=== PATIENT | female | born 1945 | race Caucasian/White ===

== ENCOUNTER 2021-02-24 21:54 | Inpatient (IN) | payer MEDICARE, BC ==
[2021-02-25] MEDS ORDERED: NALOXONE 0.4 MG/ML 1 ML VIAL IV PRN (01:07)
[2021-02-25] MEDS ORDERED: IPRATROPIUM-ALBUTEROL 3 ML NEB INHALATION PRN ×2 (01:09→12:14)
[2021-02-25] MEDS ORDERED: HEPARIN SODIUM 1,000 UN/ML (10ML VL) IV PRN (01:09)
[2021-02-25] MEDS ORDERED: IPRATROPIUM 0.5 MG/2.5 ML NEBU INHALATION STA (01:21)
[2021-02-25] MEDS ORDERED: DILTIAZEM 125 MG in SODIUM CHLORIDE 0.9% 100 ML IV SCH (01:30)
[2021-02-25 01:38] LABS: Basophils % (A) 0 %; Eosinophils % (A) 0 %; HCT 34.7 % (34.0-46.0); HGB 11.3 gm/dL (11.4-16.0); Lymphocytes # (A) 1.1 k/uL (1.0-4.8); Lymphocytes % (A) 14 %; MCH 29.5 pg (25.0-35.0); MCHC 32.5 g/dL (31.0-37.0); MCV 90.6 fL (80.0-100.0); Mean Platelet Volume 7.2; Monocytes # (A) 0.3 k/uL (0-1.0); Monocytes % (A) 4 %; Neutrophils % (A) 80 %; Platelet Count 157 k/uL (150-450); RBC 3.83 m/uL (3.80-5.40); RDW 14.4 % (11.5-15.5); WBC 7.5 k/uL (3.8-10.6)
[2021-02-25 02:00] LABS: Albumin 2.9 g/dL (3.5-5.0); Calcium 8.7 mg/dL (8.4-10.2); Magnesium 1.8 mg/dL (1.6-2.3); Potassium 3.6 mmol/L (3.5-5.1); Total Bilirubin 0.2 mg/dL (0.2-1.3); Total Protein 5.6 g/dL (6.3-8.2)
[2021-02-25 02:06] LABS: Partial Thromboplastin Time 85.9 sec (22.0-30.0); Prothrombin Time 10.4 sec (9.0-12.0)
[2021-02-25] MEDS ORDERED: ACETAMINOPHEN TAB 325 MG TAB PO PRN (02:36)
[2021-02-25] MEDS ORDERED: IPRATROPIUM 0.5 MG/2.5 ML NEBU INHALATION PRN (02:39)
[2021-02-25] MEDS ORDERED: SODIUM CHLORIDE 0.9% 1,000 ML IV SCH (02:45)
--- NOTE | 2021-02-25 02:45 | P.HPIM ---
History of Present Illness H&P Date: 02/25/21 The patient is a 75-year-old female with a PMH of type II DM, hyperlipidemia, essential tremor, and COPD who was transferred from [facility] for new onset A. fib with RVR and COPD exacerbation. History obtained from the patient along with the transferring physician. The patient reports that she had initially contracted COVID-19 roughly 4 weeks ago and was admitted to [facility] on 02/09 and was subsequently discharged to home. The patient notes that her breathing however continued to worsen and she subsequently was readmitted to [facility] on 02/22 at which time she was found to have a suspected community acquired pneumonia along with COPD exacerbation. She was started on Levaquin, DuoNeb's, and Solu-Medrol. As per the transferring physician, the patient was noted to be making gradual improvements with only mild residual shortness of breath when she was found to be in A. fib with RVR on tele-monitor. The patient was ultimately transferred to [facility] for cardiology evaluation. During the interview, the patient reported only minimal improvement in her sun rtness of breath since her readmission and noted ongoing wheezing and lethargy. She reported a chronic cough productive of white phlegm which is slightly increased from baseline. Denied fevers, chills, nausea, vomiting, diarrhea, abdominal pain, headaches, or dizziness. The radiologic and laboratory evaluation from [facility] was reviewed in detail with chest x-ray on 02/24/21 revealing patchy opacities in the mid lower lung suggesting pneumonia slightly increased compared to the previous chest x-ray. Laboratory evaluation revealed WBC count of 9.3, hemoglobin 11.7, platelets 134, sodium 135, potassium 3.9, chloride 104, CO2 22, BUN 21, creatinine 1.4, AST 10, ALT 13, troponin 0 .01. Upon admission to [facility], vital signs revealed BP 120/77, pulse 113, respiratory rate 24, SpO2 91% with 2 L nasal cannula, and temperature 99.0F. Review of Systems Pertinent positives and negatives as discussed in HPI, a complete review of systems was performed and all other systems are negative. Past Medical History Past Medical History: COPD, Diabetes Mellitus, Hypertension, Pneumonia History of Any Multi-Drug Resistant Organisms: None Reported Past Surgical History: Hysterectomy, Joint Replacement, Orthopedic Surgery Past Anesthesia/Blood Transfusion Reactions: No Reported Reaction Past Psychological History: No Psychological Hx Reported Smoking Status: Current every day smoker Past Alcohol Use History: None Reported Past Drug Use History: None Reported - Past Family History Mother Family Medical History: Cancer Medications and Allergies Allergies Allergy/AdvReac Type Severity Reaction Status Date / Time cephalexin [From Keflex] Allergy Itching Verified 02/25/21 00:53 torsemide [From Demadex] Allergy Rash/Hives Verified 02/25/21 00:53 Physical Exam Vitals: Vital Signs Temp Pulse Resp BP Pulse Ox 02/25/21 00:57 113 H 24 02/25/21 00:30 99.0 F 113 H 24 120/77 91 L Intake and Output 02/24/21 02/24/21 02/25/21 14:59 22:59 06:59 Other: Voiding Method Bedside Commode Weight 95.5 kg General: non toxic, no distress, appears at stated age, obese Derm: no unusual rashes/lesions no unusual ecchymoses, warm, dry Head: atraumatic, normocephalic, symmetric Eyes: EOMI, no lid lag, anicteric sclera, pupils equal round reactive to light ENT: Nose and ears atraumatic, no thrush, no pharyngeal erythema Neck: No thyromegaly, no cervical lymphadenopathy, trachea midline, supple Mouth: no lip lesion, mucus membranes moist Cardiovascular: S1S2 reg, no murmur, positive posterior tibial pulse bilateral, no edema, capillary refill less than 2 seconds Lungs: Bilateral wheezing and scattered rhonchi, no accessory muscle use, no conversational dyspnea Abdominal: soft, nontender to palpation, no guarding, no appreciable organomegaly, normal bowel sounds Ext: no gross muscle atrophy, muscle strength 5 out of 5 in all 4 extremities grossly, no contractures, Neuro: CN II-XI grossly intact, light touch intact all 4 extremities, finger to nose within normal limits, tremor noted worsening with intention Psych: Alert, oriented, appropriate affect Results CBC & Chem 7: 02/25/21 01:24 02/25/21 01:28 Labs: Abnormal Lab Results - Last 24 Hours (Table) 02/25/21 02/25/21 Range/Units 01:24 01:28 Hgb 11.3 L (11.4-16.0) gm/dL Sodium 135 L (137-145) mmol/L BUN 22 H (7-17) mg/dL Creatinine 1.69 H (0.52-1.04) mg/dL Glucose 68 L (74-99) mg/dL Total Protein 5.6 L (6.3-8.2) g/dL Albumin 2.9 L (3.5-5.0) g/dL Thrombosis Risk Factor Assmnt - Choose All That Apply Any of the Below Risk Factors Present?: Yes Each Factor Represents 1 point: Abnormal pulmonary function (COPD), Serious lung disease incl. pneumonia (< 1month) Each Risk Factor Represents 3 Points: Age 75 years or older Thrombosis Risk Factor Assessment Total Risk Factor Score: 5 Thrombosis Risk Factor Assessment Level: High Risk Assessment and Plan Plan: Acute hypoxic respiratory failure, likely multifactorial due to acute COPD and community acquired pneumonia and recent COVID-19 -Continue with Atrovent (patient reports significant tachycardia with worsening tremors with albuterol) -C/w Solumedrol -Pulmonary consulted -Continue with Levaquin 750 mg q48h (Cr-clearance 42) New onset A. fib with RVR -Patient denied any prior history of A. fib -Continue with heparin and Cardizem infusions -Cardiac monitoring -Echocardiogram -Cardiac consult -Check TSH Kidney failure, acute versus chronic -Gentle hydration Chronic conditions: Type II DM, hyperlipidemia, essential tremor -Check A1c -Lispro insulin sliding scale with blood glucose monitoring -Hold oral hypoglycemics DVT prophylaxis -Heparin infusion The patient is admitted with an anticipated greater than 2 midnight stay for evaluation of respiratory failure CODE STATUS: No Code Discussed with: Patient Anticipated discharge date: 2-[address]: Home A total of 40 minutes was spent on the care of this complex patient more than 50% of the time was spent in counseling and care coordination.
[2021-02-25] MEDS ORDERED: LEVOFLOXACIN 750 MG TAB PO ONE (03:00)
[2021-02-25] MEDS: HEPARIN SOD,PORK IN 0.45% NACL 25,000 UNIT in 0.45% NACL 1 250ML.BAG IV SCH (03:17)
[2021-02-25] MEDS: SODIUM CHLORIDE 0.9% 1,000 ML IV SCH ×2 (03:21→18:03)
[2021-02-25] MEDS: INSULIN ASPART (NovoLOG) 100 UNIT/ML VIAL SQ SCH ×5 (06:31→21:00)
[2021-02-25 06:35] LABS: Glucose,Whole Blood 69 mg/dL (75-99)
[2021-02-25 07:03] LABS: Glucose,Whole Blood 107 mg/dL (75-99)
[2021-02-25] MEDS: IPRATROPIUM 0.5 MG/2.5 ML NEBU INHALATION SCH ×4 (07:55→20:08)
[2021-02-25] MEDS ORDERED: IPRATROPIUM-ALBUTEROL 3 ML NEB INHALATION SCH (08:00)
[2021-02-25] MEDS ORDERED: methylPREDNISolone SOD SUCCI 125 MG/2 ML VIAL IV SCH (08:00)
[2021-02-25] MEDS: ZINC SULFATE 220 MG CAP PO SCH (09:00)
[2021-02-25] MEDS: ASCORBIC ACID 500 MG TAB PO SCH (09:00)
[2021-02-25] MEDS: CHOLECALCIFEROL 25 MCG (1000 IU) TABLET PO SCH (09:00)
--- NOTE | 2021-02-25 10:02 | XR ---
EXAMINATION TYPE: XR chest 2V DATE OF EXAM: 02/25/2021 COMPARISON: NONE TECHNIQUE: PA and lateral views submitted. HISTORY: Cough FINDINGS: There is a coarsened interstitium. No pneumothorax or pleural effusion. Left basilar subsegmental con solidation. Atherosclerotic change aorta. IMPRESSION: 1. Left basilar atelectasis favored over infiltrate. Prominence of the interstitium could be associat ed with interstitial pneumonitis or bronchitis correlate clinically.
[2021-02-25 12:02] LABS: Glucose,Whole Blood 88 mg/dL (75-99)
--- NOTE | 2021-02-25 14:11 | P.PN ---
Subjective Progress Note Date: 02/25/21 (delayed charting seen at 0830) Principal diagnosis: shortness of breath Patient is a 75-year-old female with diabetes mellitus type 2, hypertension, essential tremor, and COPD he was a transfer from [facility] secondary to new onset A. fib with RVR are during a COPD exacerbation. She was initially hospitalized at [facility] on 02/22 secondary to acute exacerbation of COPD and possible community-acquired pneumonia. She was treated with Levaquin, DuoNeb's, and steroids. She then developed A. fib with RVR which is new onset. She was started on a Cardizem drip and subsequently transferred to our facility. Of note the patient did have COVID-19 approximately 4 weeks ago but has since recovering and then again had worsening. Patient converted to sinus rhythm overnight. Patient seen and examined at bedside. She states she is feeling much better than yesterday. She continues to have shortness of breath and wheezing. She states her shortness of breath has gotten worse over the last 1 week. She has been wheezing consistently since her [place] diagnosis. She denies any prior history of A. fib. She does not use any oxygen at home normally. Falls often and last year had a fall that resulted in cervical fx requiring surgery General: ill appearing, no distress, appears at stated age Derm: warm, dry Head: atraumatic, normocephalic, symmetric Eyes: EOMI, no lid lag, anicteric sclera Mouth: no lip lesion, mucus membranes moist Cardiovascular: S1S2 reg, no murmur, positive posterior tibial pulse bilateral, Lungs: diffuse wheezing bilateral , no accessory muscle use Abdominal: soft, nontender to palpation, no guarding, no appreciable organomeg nic Ext: no gross muscle atrophy, no edema, no contractures Neuro: CN II-XI grossly intact, no focal neuro deficits Psych: Alert, oriented, appropriate affect Acute exacerbation of COPD, [place] acquired pneumonia, recent COVID-19, acute hypoxic respiratory failure - CXR - Levaquin due to allergies - pulm consult - steroids, duoneb, pulm hygeine New-onset A. fib with RVR, currently in normal sinus rhythm -Transitioned off of Cardizem drip to oral Cardizem -tele - echo - TSH normal - Mg 1.8 - cardio recs - poor candidate for anticoagulation due to slef reporting of multiple falls including one resulting in cervical spine fracture. DM 2 with hypoglycemia - follow BS - SSI - Hold Glipizide and pioglitozone - hypoglycemia may be due to this agents in conjunction with MACKENZIE - Resume Januvia--> [place] MACKENZIE vs CKD - unknown baseline Cr - follow Cr - Avoid nephrotoxic agents - fIV fluids Hypertension, controlled -Resume home atenolol -Old home Procardia she has not been started on Cardizem -Follow blood pressures Tobacco abuse -Cessation Obesity with BMI 34 -Structured outpatient weight loss DVT prophylaxis: Heparin gtt Discussed with: patient, nursing Anticipated discharge: 3-[address]: home A total of 35 minutes was spent on the care of this complex patient more than 50% of the time was spent in counseling and care coordination. Objective - Vital Signs Vital signs: Vital Signs Temp 96.7 F L 02/25/21 12:00 Pulse 69 02/25/21 12:00 Resp 20 02/25/21 12:00 BP 158/70 02/25/21 12:00 Pulse Ox 93 L 02/25/21 12:00 Intake & Output 02/24/21 02/25/21 02/25/21 18:59 06:59 18:59 Intake Total 0.167 120 Balance 0.167 120 Weight 95.5 kg Intake: Intake, IV Titration 0.167 Amount Heparin Sod,Pork in 0.45% 0.167 NaCl 25,000 unit In 0.45 % NaCl 1 250ml.bag @ 10. 471 UNITS/KG/HR 10 mls/hr IV .Q24H [facility] Rx#: [id number] Oral 120 Other: Voiding Method Bedside Commode Toilet - Labs CBC & Chem 7: 02/25/21 01:24 02/25/21 01:28 Labs: Abnormal Lab Results - Last 24 Hours (Table) 02/25/21 02/25/21 02/25/21 Range/Units 01:24 01:24 01:28 Hgb 11.3 L (11.4-16.0) gm/dL APTT 85.9 H (22.0-30.0) sec Sodium 135 L (137-145) mmol/L BUN 22 H (7-17) mg/dL Creatinine 1.69 H (0.52-1.04) mg/dL Glucose 68 L (74-99) mg/dL POC Glucose (mg/dL) (75-99) mg/dL Total Protein 5.6 L (6.3-8.2) g/dL Albumin 2.9 L (3.5-5.0) g/dL 02/25/21 02/25/21 02/25/21 Range/Units 06:24 06:52 07:29 Hgb (11.4-16.0) gm/dL APTT 60.0 H (22.0-30.0) sec Sodium (137-145) mmol/L BUN (7-17) mg/dL Creatinine (0.52-1.04) mg/dL Glucose (74-99) mg/dL POC Glucose (mg/dL) 69 L 107 H (75-99) mg/dL Total Protein (6.3-8.2) g/dL Albumin (3.5-5.0) g/dL
--- NOTE | 2021-02-25 16:05 | P.CNPUL ---
History of Present Illness Consult date: 02/25/21 Requesting physician: Jody Parisi Reason for consult: other Chief complaint: Atrial fibrillation. History of present illness: Pulmonary consult dated 02/25/2021. 75-year-old female, with a history of diabetes, hyperlipidemia, essential tremor, and COPD. She apparently was transferred down from [facility], with new onset atrial fibrillation and RVR. She apparently had COVID 19 infection roughly 4 weeks ago, and was admitted to [facility] on February 09, and discharged home. Apparently since that time, her breathing has worsened. She was readmitted to [facility] on February 22, at which time she was suspected to have community-acquired pneumonia along with COPD exacerbation. She was started on Levaquin, DuoNeb, and Solu-Medrol. Apparently, the patient was making improvement at which time, she was noted to have atrial fibrillation with RVR. She was transferred down primarily for cardiology evaluation. She's currently resting comfortably. She's currently on 4 L nasal oxygen. She's getting saline at 75 mL an hour, which returned on the KVO, and IV heparin. She is not admitting to any shortness of breath at this time. She mostly focuses on her irregular heartbeat. Laboratory data includes a white count 7.5, hemoglobin 11.3, hematocrit 34.7, and platelet count 157,000. PTT is 60. Sodium 135, potassium 3.6, chlorides 104, CO2 25, anion gap 6, BUN and creatinine were 22 and 1.69. There is some basilar atelectasis. No definitive infiltrate. The interstitium to me as a bit prominent which might be consistent with some mild interstitial edema/CHF. Review of Systems REVIEW OF SYSTEMS: CONSTITUTIONAL: [Negative.] NEUROLOGIC: [ Negative.] HEENT: [ Negative.] CARDIAC: Irregular rapid heartbeat. PULMONARY: Shortness of breath. GI: [Negative.] : [Negative.] RHEUMATOLOGIC: [ Negative.] IMMUNOLOGIC: [ Negative.] ENDOCRINE: [Negative. ] DERMATOLOGIC: [Negative.] Past Medical History Past Medical History: COPD, Diabetes Mellitus, Hypertension, Pneumonia History of Any Multi-Drug Resistant Organisms: None Reported Past Surgical History: Hysterectomy, Joint Replacement, Orthopedic Surgery Past Anesthesia/Blood Transfusion Reactions: No Reported Reaction Past Psychological History: No Psychological Hx Reported Smoking Status: Current every day smoker Past Alcohol Use History: None Reported Past Drug Use History: None Reported - Past Family History Mother Family Medical History: Cancer Medications and Allergies Home Medications Medication Instructions Recorded Confirmed Type Budesonide 1 mg INHALATION RT-BID 02/25/21 02/25/21 History Budesonide/Formoterol Fumarate 2 puff INHALATION RT-BID 02/25/21 02/25/21 History [Symbicort 160-4.5 Mcg Inhaler] Cholecalciferol (Vitamin D3) 125 mcg PO DAILY 02/25/21 02/25/21 History [Vitamin D3 (5000 Iu)] Cyanocobalamin (Vitamin B-12) 1,000 mcg PO DAILY 02/25/21 02/25/21 History [Vitamin B-12] Levalbuterol Nebulized [Xopenex 1.25 mg INHALATION RT-Q4H PRN 02/25/21 02/25/21 History Nebulized] Lovastatin [Mevacor] 20 mg PO HS 02/25/21 02/25/21 History NIFEdipine XL [Procardia Xl] 30 mg PO DAILY 02/25/21 02/25/21 History NIFEdipine [Procardia XL] 90 mg PO DAILY 02/25/21 02/25/21 History PARoxetine HCL [Paxil] 30 mg PO DAILY 02/25/21 02/25/21 History Pioglitazone [Actos] 15 mg PO DAILY 02/25/21 02/25/21 History Zafirlukast [Accolate] 20 mg PO BID 02/25/21 02/25/21 History atenoloL [Atenolol] 25 mg PO BID 02/25/21 02/25/21 History glipiZIDE [Glucotrol] 10 mg PO BID 02/25/21 02/25/21 History hydroCHLOROthiazide 12.5 mg PO DAILY 02/25/21 02/25/21 History predniSONE See Taper PO DAILY 02/25/21 02/25/21 History sitaGLIPtin [Januvia] 50 mg PO DAILY 02/25/21 02/25/21 History Allergies Allergy/AdvReac Type Severity Reaction Status Date / Time cephalexin [From Keflex] Allergy Itching Verified 02/25/21 09:37 moxifloxacin [From Avelox] Allergy Unknown Verified 02/25/21 09:37 torsemide [From Demadex] Allergy Rash/Hives Verified 02/25/21 09:37 Physical Exam Osteopathic Statement: *. No significant issues noted on an osteopathic structural exam other than those noted in the History and Physical/Consult. Vitals: Vital Signs Temp Pulse Pulse Pulse Resp BP BP 02/25/21 12:00 96.7 F L 69 20 158/70 02/25/21 11:53 68 02/25/21 11:41 68 02/25/21 09:11 98.2 F 60 63 20 127/59 02/25/21 08:07 64 02/25/21 07:55 64 02/25/21 03:35 60 02/25/21 03:30 98.7 F 58 L 26 H 147/71 02/25/21 03:24 68 02/25/21 00:57 113 H 24 02/25/21 00:30 99.0 F 113 H 24 120/77 Pulse Ox 02/25/21 12:00 93 L 02/25/21 11:53 02/25/21 11:41 02/25/21 09:11 92 L 02/25/21 08:07 02/25/21 07:55 02/25/21 03:35 02/25/21 03:30 96 02/25/21 03:24 02/25/21 00:57 02/25/21 00:30 91 L Intake and Output 02/25/21 02/25/21 02/25/21 06:59 14:59 22:59 Intake Total 0.167 120 Balance 0.167 120 Intake: Intake, IV Titration 0.167 Amount Heparin Sod,Pork in 0.45% 0.167 NaCl 25,000 unit In 0.45 % NaCl 1 250ml.bag @ 10. 471 UNITS/KG/HR 10 mls/hr IV .Q24H [facility] Rx#: [id number] Oral 120 Other: Voiding Method Bedside Commode Toilet Weight 95.5 kg No acute distress, oriented 3. Currently on 4 L. No conversational dyspnea or use of accessory muscles. HEENT examination is grossly unremarkable. Neck supple. Full range of motion. No adenopathy thyromegaly or neck vein distention. Cardiovascular examination reveals an irregular rhythm and rate. S1-S2 normal. No S3 or S4. No discernible murmur noted. Lungs reveal mild scattered rhonchi and basilar crackles. No wheezes. Breath sounds equal bilaterally. Abdomen soft bowel sounds are heard. No masses or tenderness. Extremities are intact. Trace edema. No cyanosis or clubbing. Skin is without rash or lesion. Neurologic examination is brief but nonfocal. Results - Laboratory Findings CBC and BMP: 02/25/21 01:24 02/25/21 01:28 PT/INR, D-dimer PT 10.4 sec (9.0-12.0) 02/25/21 01:24 INR 1.0 (<1.2) 02/25/21 01:24 Abnormal lab findings: Abnormal Labs 02/25/21 02/25/21 02/25/21 01:24 01:24 01:28 Hgb 11.3 L APTT 85.9 H Sodium 135 L BUN 22 H Creatinine 1.69 H Glucose 68 L POC Glucose (mg/dL) Hemoglobin A1c Total Protein 5.6 L Albumin 2.9 L 02/25/21 02/25/21 02/25/21 06:24 06:52 07:29 Hgb APTT 60.0 H Sodium BUN Creatinine Glucose POC Glucose (mg/dL) 69 L 107 H Hemoglobin A1c Total Protein Albumin 02/25/21 07:29 Hgb APTT Sodium BUN Creatinine Glucose POC Glucose (mg/dL) Hemoglobin A1c 9.0 H Total Protein Albumin - Diagnostic Findings Chest x-ray: image reviewed Assessment and Plan Assessment: Shortness of breath, likely multifactorial, in part related to atrial fibrillation/RVR, possible COPD exacerbation, and possible underlying mild fluid overload/CHF. History of underlying COPD. History of diabetes mellitus. History of hypertension. Prior history of COVID 19 infection, roughly 1 month ago. History of ongoing tobacco use. History of benign essential tremor. Plan: Plan dated 02/25/2021. The patient's IV fluids are turned down to 10 mL an hour. Patient's medications and x-rays are reviewed. A pro-calcitonin level as well as a N-terminal proBNP are added. Medications are reviewed. We will continue to follow make recommendations were appropriate. Overall prognosis is guarded. The patient continues on IV heparin. Cardiology was asked to see this patient. Time with Patient: Greater than 30
[2021-02-25 17:07] LABS: Glucose,Whole Blood 334 mg/dL (75-99)
--- NOTE | 2021-02-25 17:49 | P.CRDCN ---
History of Present Illness Consult date: 02/25/21 History of present illness: This is a 75-year-old female with history of diabetes, hypertension and COPD who apparently was diagnosed for 4 weeks ago with coronavirus infection. Patient was treated and was sent home but readmitted to the [facility] on February 22 with suspected community acquired pneumonia and COPD exacerbation. Patient was being treated with antibiotics and steroids. Patient apparently developed atrial fibrillation with RVR. She was transferred to this hospital for further evaluation and treatment. She was started on IV Cardizem drip. Patient converted to sinus rhythm. She is feeling better. Her white count was 7.5. Hemoglobin was 11.3. Her creatinine is 1.69. Chest x-ray showed some left-sided infiltrate versus atelectasis and interstitial prominence size to possible bronchitis. The possibility of CHF to be considered. Her proBNP is elevated. Patient is currently on small dose of hydrochlorothiazide. May switch to Lasix. We'll get an echocardiogram to assess LV function. Further recommendations depend upon clinical course. Review of Systems As per the chart Past Medical History Past Medical History: COPD, Diabetes Mellitus, Hypertension, Pneumonia History of Any Multi-Drug Resistant Organisms: None Reported Past Surgical History: Hysterectomy, Joint Replacement, Orthopedic Surgery Past Anesthesia/Blood Transfusion Reactions: No Reported Reaction Past Psychological History: No Psychological Hx Reported Smoking Status: Current every day smoker Past Alcohol Use History: None Reported Past Drug Use History: None Reported - Past Family History Mother Family Medical History: Cancer Medications and Allergies Home Medications Medication Instructions Recorded Confirmed Type Budesonide 1 mg INHALATION RT-BID 02/25/21 02/25/21 History Budesonide/Formoterol Fumarate 2 puff INHALATION RT-BID 02/25/21 02/25/21 History [Symbicort 160-4.5 Mcg Inhaler] Cholecalciferol (Vitamin D3) 125 mcg PO DAILY 02/25/21 02/25/21 History [Vitamin D3 (5000 Iu)] Cyanocobalamin (Vitamin B-12) 1,000 mcg PO DAILY 02/25/21 02/25/21 History [Vitamin B-12] Levalbuterol Nebulized [Xopenex 1.25 mg INHALATION RT-Q4H PRN 02/25/21 02/25/21 History Nebulized] Lovastatin [Mevacor] 20 mg PO HS 02/25/21 02/25/21 History NIFEdipine XL [Procardia Xl] 30 mg PO DAILY 02/25/21 02/25/21 History NIFEdipine [Procardia XL] 90 mg PO DAILY 02/25/21 02/25/21 History PARoxetine HCL [Paxil] 30 mg PO DAILY 02/25/21 02/25/21 History Pioglitazone [Actos] 15 mg PO DAILY 02/25/21 02/25/21 History Zafirlukast [Accolate] 20 mg PO BID 02/25/21 02/25/21 History atenoloL [Atenolol] 25 mg PO BID 02/25/21 02/25/21 History glipiZIDE [Glucotrol] 10 mg PO BID 02/25/21 02/25/21 History hydroCHLOROthiazide 12.5 mg PO DAILY 02/25/21 02/25/21 History predniSONE See Taper PO DAILY 02/25/21 02/25/21 History sitaGLIPtin [Januvia] 50 mg PO DAILY 02/25/21 02/25/21 History Allergies Allergy/AdvReac Type Severity Reaction Status Date / Time cephalexin [From Keflex] Allergy Itching Verified 02/25/21 09:37 moxifloxacin [From Avelox] Allergy Unknown Verified 02/25/21 09:37 torsemide [From Demadex] Allergy Rash/Hives Verified 02/25/21 09:37 Physical Exam Vitals: Vital Signs Temp Pulse Pulse Pulse Resp BP BP 02/25/21 16:17 68 02/25/21 16:04 68 02/25/21 12:00 96.7 F L 69 20 158/70 02/25/21 11:53 68 02/25/21 11:41 68 02/25/21 09:11 98.2 F 60 63 20 127/59 02/25/21 08:07 64 02/25/21 07:55 64 02/25/21 03:35 60 02/25/21 03:30 98.7 F 58 L 26 H 147/71 02/25/21 03:24 68 02/25/21 00:57 113 H 24 02/25/21 00:30 99.0 F 113 H 24 120/77 Pulse Ox 02/25/21 16:17 02/25/21 16:04 02/25/21 12:00 93 L 02/25/21 11:53 02/25/21 11:41 02/25/21 09:11 92 L 02/25/21 08:07 02/25/21 07:55 02/25/21 03:35 02/25/21 03:30 96 02/25/21 03:24 02/25/21 00:57 02/25/21 00:30 91 L Intake and Output 02/25/21 02/25/21 02/25/21 06:59 14:59 22:59 Intake Total 0.167 120 Balance 0.167 120 Intake: Intake, IV Titration 0.167 Amount Heparin Sod,Pork in 0.45% 0.167 NaCl 25,000 unit In 0.45 % NaCl 1 250ml.bag @ 10. 471 UNITS/KG/HR 10 mls/hr IV .Q24H [facility] Rx#: [id number] Oral 120 Other: Voiding Method Bedside Commode Toilet # Voids 2 Weight 95.5 kg GENERAL EXAM: Patient is alert and oriented and doesn't appear to be in any acute distress HEENT: Normocephalic. Normal reaction of pupils, equal size, normal range of extraocular motion. No erythema or exudates in the throat. NECK: No masses, no nuchal rigidity. CHEST: No chest wall deformity. LUNGS: Scattered rhonchi and rales at the bases HEART: S1 and S2 normal . Regular heart sounds ABDOMEN: No hepatosplenomegaly, normal bowel sounds, no guarding or rigidity. SKIN: No rashes CENTRAL NERVOUS SYSTEM: No focal deficits. EXTREMITIES: No cyanosis, clubbing or edema. Results 02/25/21 01:24 02/25/21 01:28 Cardiac Enzymes 02/25/21 Range/Units 01:28 AST 18 (14-36) U/L Coagulation 02/25/21 02/25/21 Range/Units 01:24 07:29 PT 10.4 (9.0-12.0) sec APTT 85.9 H 60.0 H (22.0-30.0) sec CBC 02/25/21 Range/Units 01:24 WBC 7.5 (3.8-10.6) k/uL RBC 3.83 (3.80-5.40) m/uL Hgb 11.3 L (11.4-16.0) gm/dL Hct 34.7 (34.0-46.0) % Plt Count 157 (150-450) k/uL Comprehensive Metabolic Panel 02/25/21 Range/Units 01:28 Sodium 135 L (137-145) mmol/L Potassium 3.6 (3.5-5.1) mmol/L Chloride 104 (98-107) mmol/L Carbon Dioxide 25 (22-30) mmol/L BUN 22 H (7-17) mg/dL Creatinine 1.69 H (0.52-1.04) mg/dL Glucose 68 L (74-99) mg/dL Calcium 8.7 (8.4-10.2) mg/dL AST 18 (14-36) U/L ALT 14 (4-34) U/L Alkaline Phosphatase 41 (38-126) U/L Total Protein 5.6 L (6.3-8.2) g/dL Albumin 2.9 L (3.5-5.0) g/dL Current Medications Generic Name Dose Route Start Last Admin Trade Name Freq PRN Reason Stop Dose Admin Acetaminophen 650 mg 02/25/21 02:36 Acetaminophen Tab 325 Mg Tab PO Q6HR PRN Fever and/ or Pain Albuterol/Ipratropium 3 ml 02/25/21 12:14 Ipratropium-Albuterol 3 Ml Neb INHALATION RT-Q4H PRN Shortness Of Breath Ascorbic Acid 1,000 mg 02/25/21 09:00 02/25/21 09:00 Ascorbic Acid 500 Mg Tab PO 1,000 mg DAILY [facility] Administration Atenolol 25 mg 02/25/21 21:00 Atenolol 25 Mg Tab PO BID [facility] Atorvastatin Calcium 10 mg 02/25/21 21:00 Atorvastatin 10 Mg Tab PO HS [facility] Budesonide/Formoterol Fumarate 2 puff 02/25/21 20:00 Symbicort 160-4.5 Mcg Inhaler INHALATION RT-BID [facility] Cholecalciferol 125 mcg 02/25/21 09:00 02/25/21 09:00 Cholecalciferol 25 Mcg (1000 Iu) Tablet PO 125 mcg DAILY [facility] Administration Cyanocobalamin 1,000 mcg 02/26/21 09:00 Cyanocobalamin 500 Mcg Tab PO DAILY [facility] Diltiazem HCl 60 mg 02/25/21 16:00 Diltiazem Oral 60 Mg Tab PO TID [facility] Heparin Sodium (Porcine) 0 unit 02/25/21 01:09 Heparin Sodium 1,000 Un/Ml (10ml Vl) IV PER PROTOCOL PRN Low PTT Protocol Hydrochlorothiazide 12.5 mg 02/26/21 09:00 Hydrochlorothiazide 12.5 Mg Cap PO DAILY [facility] Heparin Sodium/Sodium Chloride 250 mls @ 10 mls/hr 02/25/21 01:30 02/25/21 03:18 25,000 unit/ Sodium Chloride IV 8.47 units/kg/hr .Q24H [facility] 8.089 mls/hr Titration Protocol 10.471 UNITS/KG/HR Sodium Chloride 1,000 mls @ 20 mls/hr 02/25/21 02:45 02/25/21 03:21 Saline 0.9% IV 75 mls/hr .Q24H [facility] Administration Insulin Aspart 0 unit 02/25/21 07:30 02/25/21 12:49 Insulin Aspart (Novolog) 100 Unit/Ml Vial SQ Not Given ACHS [facility] Protocol Ipratropium [place] 0.5 mg 02/25/21 08:00 02/25/21 16:04 Ipratropium 0.5 Mg/2.5 Ml Nebu INHALATION 0.5 mg RT-QID [facility] Administration Linagliptin 5 mg 02/26/21 09:00 Linagliptin 5 Mg Tablet PO DAILY [facility] Naloxone HCl 0.2 mg 02/25/21 01:07 Naloxone 0.4 Mg/Ml 1 Ml Vial IV Q2M PRN Opioid Reversal Paroxetine HCl 30 mg 02/26/21 09:00 Paroxetine 10 Mg Tab PO DAILY [facility] Zinc Sulfate 220 mg 02/25/21 09:00 02/25/21 09:00 Zinc Sulfate 220 Mg Cap PO 220 mg DAILY [facility] Administration Intake and Output 02/25/21 02/25/21 02/25/21 06:59 14:59 22:59 Intake Total 0.167 120 Balance 0.167 120 Intake: Intake, IV Titration 0.167 Amount Heparin Sod,Pork in 0.45% 0.167 NaCl 25,000 unit In 0.45 % NaCl 1 250ml.bag @ 10. 471 UNITS/KG/HR 10 mls/hr IV .Q24H [facility] Rx#: [id number] Oral 120 Other: Voiding Method Bedside Commode Toilet # Voids 2 Weight 95.5 kg 02/25/21 01:24 02/25/21 01:28 EKG Interpretations (text) Initially patient was in atrial fibrillation. She converted to sinus rhythm Assessment and Plan (1) Atrial fibrillation with RVR Current Visit: Yes Status: Acute Code(s): I48.91 - UNSPECIFIED ATRIAL FIBRILLATION SNOMED Code(s): 466706967619050 (2) Community acquired pneumonia Current Visit: Yes Status: Acute Code(s): J18.9 - PNEUMONIA, UNSPECIFIED ORGANISM SNOMED Code(s): 381851837 (3) COVID-19 Current Visit: Yes Status: Acute Code(s): U07.1 - COVID-19 SNOMED Code(s): 851844222 (4) COPD (chronic obstructive pulmonary disease) Current Visit: Yes Status: Acute Code(s): J44.9 - CHRONIC OBSTRUCTIVE PULMONARY DISEASE, UNSPECIFIED SNOMED Code(s): 64493186 Plan: Patient is back in sinus rhythm. We'll continue beta robert. Get echocardiogram to assess LV function. There could be competent of diastolic CHF. Short course of diuretics to be constricted. Further recommendations depend upon clinical course. We'll continue treatment for COPD and pneumonia
[2021-02-25] MEDS ORDERED: INSULIN ASPART (NovoLOG) 100 UNIT/ML VIAL SQ ONE (17:57)
[2021-02-25] MEDS: DILTIAZEM ORAL 60 MG TAB PO SCH ×2 (18:03→22:56)
[2021-02-25] MEDS ORDERED: BUDESONIDE 1 MG/2 ML NEBU INHALATION SCH (20:00)
[2021-02-25] MEDS: SYMBICORT 160-4.5 MCG INHALER INHALATION SCH (20:08)
[2021-02-25 20:20] LABS: Glucose,Whole Blood 379 mg/dL (75-99)
[2021-02-25] MEDS: atenoloL 25 MG TAB PO SCH (20:24)
[2021-02-25] MEDS: ATORVASTATIN 10 MG TAB PO SCH (20:24)
[2021-02-25] MEDS ORDERED: LEVOFLOXACIN 750 MG TAB PO SCH (21:00)
[2021-02-26] MEDS: HEPARIN SOD,PORK IN 0.45% NACL 25,000 UNIT in 0.45% NACL 1 250ML.BAG IV SCH (05:03)
[2021-02-26 05:59] LABS: Glucose,Whole Blood 291 mg/dL (75-99)
[2021-02-26] MEDS: INSULIN ASPART (NovoLOG) 100 UNIT/ML VIAL SQ SCH ×4 (06:39→20:43)
[2021-02-26] MEDS: IPRATROPIUM 0.5 MG/2.5 ML NEBU INHALATION SCH ×4 (08:06→20:22)
[2021-02-26] MEDS: SYMBICORT 160-4.5 MCG INHALER INHALATION SCH ×2 (08:06→20:22)
[2021-02-26 08:11] LABS: Basophils % (A) 0 %; Eosinophils % (A) 0 %; HCT 31.3 % (34.0-46.0); HGB 10.6 gm/dL (11.4-16.0); Lymphocytes # (A) 0.5 k/uL (1.0-4.8); Lymphocytes % (A) 10 %; MCH 30.8 pg (25.0-35.0); MCV 90.6 fL (80.0-100.0); Mean Platelet Volume 7.3; Monocytes # (A) 0.2 k/uL (0-1.0); Monocytes % (A) 4 %; Neutrophils # (A) 4.1 k/uL (1.3-7.7); Neutrophils % (A) 84 %; Platelet Count 138 k/uL (150-450); RBC 3.45 m/uL (3.80-5.40); RDW 13.7 % (11.5-15.5); WBC 4.8 k/uL (3.8-10.6)
[2021-02-26 08:18] LABS: INR 0.9 (<1.2); Prothrombin Time 9.7 sec (9.0-12.0)
[2021-02-26] MEDS: CYANOCOBALAMIN 500 MCG TAB PO SCH (08:39)
[2021-02-26] MEDS: CHOLECALCIFEROL 25 MCG (1000 IU) TABLET PO SCH (08:39)
[2021-02-26] MEDS: ZINC SULFATE 220 MG CAP PO SCH (08:40)
[2021-02-26] MEDS: LINAGLIPTIN 5 MG TABLET PO SCH (08:40)
[2021-02-26] MEDS: DILTIAZEM ORAL 60 MG TAB PO SCH ×3 (08:40→20:42)
[2021-02-26] MEDS: atenoloL 25 MG TAB PO SCH ×2 (08:40→20:42)
[2021-02-26] MEDS: hydroCHLOROthiazide 12.5 MG CAP PO SCH (08:40)
[2021-02-26] MEDS: PARoxetine 10 MG TAB PO SCH (08:40)
[2021-02-26] MEDS: ASCORBIC ACID 500 MG TAB PO SCH (08:40)
[2021-02-26 08:52] LABS: Potassium 3.8 mmol/L (3.5-5.1)
[2021-02-26] MEDS ORDERED: CHOLECALCIFEROL 25 MCG (1000 IU) TABLET PO SCH (09:00)
[2021-02-26] MEDS ORDERED: NIFEdipine XL 90 MG TAB.ER.24 PO SCH (09:00)
[2021-02-26 10:39] VITALS: BMI 33.7
[2021-02-26] MEDS: APIXABAN 5 MG TAB PO SCH ×2 (11:05→20:42)
--- NOTE | 2021-02-26 11:08 | ECHOF ---
Referral Reason:Afib MEASUREMENTS -------- HEIGHT: 167.6 cm WEIGHT: 94.3 kg BP: 116/56 RVIDd: 3.4 cm (< 3.3) IVSd: 1.5 cm (0.6 - 1.1) LVIDd: 4.5 cm (3.9 - 5.3) LVPWd: 1.4 cm (0.6 - 1.1) IVSs: 2.0 cm LVIDs: 3.1 cm LVPWs: 1.9 cm LAESV Index (A-L): 32.26 ml/m Ao Diam: 3.3 cm (2.0 - 3.7) AV Cusp: 1.8 cm (1.5 - 2.6) MV EXCURSION: 15.243 mm (> 18.000) MV EF SLOPE: 76 mm/s (70 - 150) EPSS: 0.3 cm MV E Wally: 1.07 m/s MV DecT: 212 ms MV A Wally: 0.89 m/s MV E/A Ratio: 1.20 RAP: 5.00 mmHg RVSP: 17.16 mmHg FINDINGS -------- Sinus rhythm. This was a technically adequate study. The left ventricular size is normal. There is moderate concentric left ventricular hypertrophy. O verall left ventricular systolic function is normal with, an EF between 55 - 60 %. The diastolic fi lling pattern is normal for the age of the patient 14.50. The right ventricle is mildly enlarged. LA is midly dilated 29-33ml/m2. The right atrial size is normal. Interatrial and interventricular septum intact. The aortic valve is trileaflet and appears structurally normal. There is no evidence of aortic regu rgitation. There is no evidence of aortic stenosis. Mild mitral regurgitation is present. Mild tricuspid regurgitation present. There is no evidence of pulmonary hypertension. The right v entricular systolic pressure, as measured by Doppler, is 17.16mmHg. There is no pulmonic regurgitation present. The aortic root size is normal. IVC Not well visulized. There is no pericardial effusion. CONCLUSIONS -------- 1. The left ventricular size is normal. 2. There is moderate concentric left ventricular hypertrophy. 3. Overall left ventricular systolic function is normal with, an EF between 55 - 60 %. 4. The diastolic filling pattern is normal for the age of the patient 14.50 5. The right ventricle is mildly enlarged. 6. LA is midly dilated 29-33ml/m2. 7. Mild mitral regurgitation is present. 8. Mild tricuspid regurgitation present. [employer]ARK [employer]IST: Bella Ny RDCS
[2021-02-26 11:31] LABS: Glucose,Whole Blood 163 mg/dL (75-99)
--- NOTE | 2021-02-26 11:45 | P.PN ---
Subjective Progress Note Date: 02/26/21 75-year-old female, with a history of diabetes, hyperlipidemia, essential tremor, and COPD. She apparently was transferred down from [facility], with new onset atrial fibrillation and RVR. She apparently had COVID 19 infection roughly 4 weeks ago, and was admitted to [facility] on February 09, and discharged home. Apparently since that time, her breathing has worsened. She was readmitted to [facility] on February 22, at which time she was suspected to have community-acquired pneumonia along with COPD exacerbation. She was started on Levaquin, DuoNeb, and Solu-Medrol. Apparently, the patient was making improvement at which time, she was noted to have atrial fibrillation with RVR. She was transferred down primarily for cardiology evaluation. She's currently resting comfortably. She's currently on 4 L nasal oxygen. She's getting saline at 75 mL an hour, which returned on the KVO, and IV heparin. She is not admitting to any shortness of breath at this time. She mostly focuses on her irregular heartbeat. Laboratory data includes a white count 7.5, hemoglobin 11.3, hematocrit 34.7, and platelet count 157,000. PTT is 60. Sodium 135, potassium 3.6, chlorides 104, CO2 25, anion gap 6, BUN and creatinine were 22 and 1.69. There is some basilar atelectasis. No definitive infiltrate. The interstitium to me as a bit prominent which might be consistent with some mild interstitial edema/CHF. On today's evaluation of 12/29/2020, patient is being seen for a follow-up. She is feeling better compared to yesterday. Less short of breath. Slightly bro nchospastic and wheezing on today's evaluation. IV fluids are to KVO .. The patient is converted to normal sinus rhythm. The echocardiogram showed a normal LV function, moderate concentric LVH, ejection fraction of 50-60% and there was some diastolic filling pattern. No significant valvular abnormalities noted. The patient is currently on Cardizem drip 60 mg by mouth 3 times a day and O 25 mg by mouth twice a day and adequate 5 mg by mouth twice a day. The patient is also on Symbicort on a 60/4.52 puffs twice a day and the patient is on Levemir insulin for blood sugar control 15 units daily at bedtime along with vascular coverage. Objective - Vital Signs Vital signs: Vital Signs Temp 96.7 F L 02/26/21 04:00 Pulse 68 02/26/21 08:20 Resp 20 02/26/21 08:00 BP 118/58 02/26/21 08:00 Pulse Ox 95 02/26/21 08:00 Intake & Output 02/25/21 02/26/21 02/26/21 18:59 06:59 18:59 Intake Total 120 708.292 240 Output Total 300 Balance 120 408.292 240 Weight 94.7 kg 94.7 kg Intake: Intake, IV Titration 708.292 Amount Heparin Sod,Pork in 0.45% 208.292 NaCl 25,000 unit In 0.45 % NaCl 1 250ml.bag @ 10. 471 UNITS/KG/HR 10 mls/hr IV .Q24H [facility] Rx#: [id number] Sodium Chloride 0.9% 1, 500 000 ml @ 50 mls/hr IV . Q20H [facility] Rx#:[id number] Oral 120 240 Output: Urine 300 Other: Voiding Method Toilet Toilet Toilet # Voids 1 1 1 - Exam No acute distress, oriented 3. Currently on 4 L. No conversational dyspnea or use of accessory muscles. Head exam was generally normal. There was no scleral icterus or corneal arcus. Mucous membranes were moist. HEENT examination is grossly unremarkable. Neck supple. Full range of motion. No adenopathy thyromegaly or neck vein distention. Cardiovascular examination reveals an irregular rhythm and rate. S1-S2 normal. No S3 or S4. No discernible murmur noted. Lungs reveal mild scattered rhonchi and basilar crackles. No wheezes. Breath sounds equal bilaterally. Abdomen soft bowel sounds are heard. No masses or tenderness. Extremities are intact. Trace edema. No cyanosis or clubbing. Skin is without rash or lesion. Neurologic examination is brief but nonfocal. - Labs CBC & Chem 7: 02/26/21 07:31 02/26/21 07:45 Labs: Abnormal Lab Results - Last 24 Hours (Table) 02/25/21 02/25/21 02/25/21 Range/Units 07:29 16:48 20:17 RBC (3.80-5.40) m/uL Hgb (11.4-16.0) gm/dL Hct (34.0-46.0) % Plt Count (150-450) k/uL Lymphocytes # (1.0-4.8) k/uL APTT (22.0-30.0) sec Sodium (137-145) mmol/L BUN (7-17) mg/dL Creatinine (0.52-1.04) mg/dL Glucose (74-99) mg/dL POC Glucose (mg/dL) 334 H 379 H (75-99) mg/dL Hemoglobin A1c 9.0 H (4.0-6.0) % Calcium (8.4-10.2) mg/dL 02/26/21 02/26/21 02/26/21 Range/Units 05:47 07:31 07:45 RBC 3.45 L (3.80-5.40) m/uL Hgb 10.6 L (11.4-16.0) gm/dL Hct 31.3 L (34.0-46.0) % Plt Count 138 L (150-450) k/uL Lymphocytes # 0.5 L (1.0-4.8) k/uL APTT 43.0 H (22.0-30.0) sec Sodium (137-145) mmol/L BUN (7-17) mg/dL Creatinine (0.52-1.04) mg/dL Glucose (74-99) mg/dL POC Glucose (mg/dL) 291 H (75-99) mg/dL Hemoglobin A1c (4.0-6.0) % Calcium (8.4-10.2) mg/dL 02/26/21 02/26/21 Range/Units 07:45 11:28 RBC (3.80-5.40) m/uL Hgb (11.4-16.0) gm/dL Hct (34.0-46.0) % Plt Count (150-450) k/uL Lymphocytes # (1.0-4.8) k/uL APTT (22.0-30.0) sec Sodium 133 L (137-145) mmol/L BUN 28 H (7-17) mg/dL Creatinine 1.44 H (0.52-1.04) mg/dL Glucose 258 H (74-99) mg/dL POC Glucose (mg/dL) 163 H (75-99) mg/dL Hemoglobin A1c (4.0-6.0) % Calcium 8.0 L (8.4-10.2) mg/dL Assessment and Plan Plan: 1 Shortness of breath, likely multifactorial, in part related to atrial fibrillation/RVR, possible COPD exacerbation, and possible underlying mild fluid overload/CHF. The patient is clinically improving. Echocardiogram showing a diastolic heart failure with a preserved LV function. 2 History of underlying COPD. 3 History of diabetes mellitus. 4 History of hypertension. 5 Prior history of COVID 19 infection, roughly 1 month ago. 6 History of ongoing tobacco use. 7 History of benign essential tremor. Plan: Give the patient dose of Lasix 40 mg IV push 1 Give the patient IV Solu Medrol 40 mg every 8 hours Continue bronchodilators Continue Symbicort Cardiac rhythm is back to sinus Continue metoprolol and Cardizem Long-term and to coagulation with Eliquis We'll continue to follow
--- NOTE | 2021-02-26 12:22 | P.PN ---
Subjective This is a 75-year-old female with history of type 2 diabetes, hypertension and COPD who apparently was diagnosed for 4 weeks ago with coronavirus infection. Patient was treated and was sent home but readmitted to the [facility] on February 22 with suspected community acquired pneumonia and COPD exacerbation. Patient was being treated with antibiotics and steroids. Patient apparently developed atrial fibrillation with RVR. She was transferred to this hospital for further evaluation and treatment. Current home cardiac medications include glipizide 12.5 mg daily, atenolol 0.5 mg twice a day, nifedipine 90 mg daily, lovastatin 20 mg nightly 02/26/21: Patient seen and examined at bedside, no acute distress, sitting up at edge of the bed. Feels well. Denies chest pain, palpitations, lightheadedness, dizziness or chest discomfort. Laboratory data reviewed sodium 133, potassium 3.8, serum creatinine 1.44 (improved 1.69 yesterday), BUN 28. Telemetry reviewed patient currently in sinus mechanism heart rate 50s to 60s. Patient does state that she used to have frequent falls. She has not follow in the past 6 months. When she did fall 6 months ago he was to to weakness in her legs or tripping. Currently being maintained on atenolol 25 mg twice a day, atorvastatin 10 mg nightly, heparin drip, furosemide 40 mg IV daily, hydrochlorothiazide 12.5 mg daily Echocardiogram revealed EF 55-60%, RV is mildly enlarged, LA is mildly dilated, mild mitral regurgitation, mild tricuspid regurgitation GENERAL: Well-appearing, well-nourished and in no acute distress. Blood pressure 118/58, heart rate 55, maintaining oxygen saturation is 95% on 4 L nasal cannula NECK: Supple without JVD or thyromegaly. LUNGS: Breath sounds clear to auscultation bilaterally. Respiration equal and unlabored. No wheezes, rales or rhonchi. HEART: Regular rate and rhythm without murmurs, rubs or gallops. S1 and S2 heard. EXTREMITIES: Normal range of motion, no edema. No clubbing or cyanosis. Peripheral pulses intact. ASSESSMENT: -Paroxysmal atrial fibrillation with RVR [id number] score 5 -Hypertension -Type 2 Diabetes -COPD -Recent COVID-19 infection 4 weeks ago PLAN: -2D echocardiogram reviewed -Stop heparin drip, start eliquis 5mg BID, will check coverage with case management -Continue atenolol 25mg BID and Diltizem 60mg TID for rate control -ACEI/ARB is on hold due to renal function -Continue hydrochlorthiazide 12.5mg daily -Further recommendations to follow, patient most likely will be stable for discharge tomorrow. Objective - Vital Signs Vital signs: Vital Signs Temp 96.7 F L 02/26/21 04:00 Pulse 66 02/26/21 04:00 Resp 20 02/26/21 04:00 BP 116/56 02/26/21 04:00 Pulse Ox 95 02/26/21 04:00 Intake & Output 02/25/21 02/26/21 02/26/21 18:59 06:59 18:59 Intake Total 120 708.292 Output Total 300 Balance 120 408.292 Weight 94.7 kg Intake: Intake, IV Titration 708.292 Amount Heparin Sod,Pork in 0.45% 208.292 NaCl 25,000 unit In 0.45 % NaCl 1 250ml.bag @ 10. 471 UNITS/KG/HR 10 mls/hr IV .Q24H [facility] Rx#: [id number] Sodium Chloride 0.9% 1, 500 000 ml @ 50 mls/hr IV . Q20H [facility] Rx#:[id number] Oral 120 Output: Urine 300 Other: Voiding Method Toilet Toilet # Voids 1 1 - Labs CBC & Chem 7: 02/26/21 07:31 02/26/21 07:45 Labs: Abnormal Lab Results - Last 24 Hours (Table) 02/25/21 02/25/21 02/25/21 Range/Units 07:29 07:29 16:48 APTT 60.0 H (22.0-30.0) sec POC Glucose (mg/dL) 334 H (75-99) mg/dL Hemoglobin A1c 9.0 H (4.0-6.0) % 02/25/21 02/26/21 Range/Units 20:17 05:47 APTT (22.0-30.0) sec POC Glucose (mg/dL) 379 H 291 H (75-99) mg/dL Hemoglobin A1c (4.0-6.0) %
[2021-02-26] MEDS ORDERED: FUROSEMIDE 10 MG/ML 4 ML VIAL ONE (12:33)
[2021-02-26] MEDS: methylPREDNISolone SOD SUCCI 40 MG/ML 1 ML VIAL IV SCH ×3 (12:42→23:38)
[2021-02-26] MEDS: FUROSEMIDE 10 MG/ML 4 ML VIAL IV SCH (12:43)
[2021-02-26] MEDS ORDERED: bisacodyL 5 MG TABLET.DR PO PRN (14:22)
--- NOTE | 2021-02-26 14:34 | P.PN ---
Subjective Progress Note Date: 02/26/21 (delayed charting seen at 0910) Principal diagnosis: shortness of breath Patient is a 75-year-old female with diabetes mellitus type 2, hypertension, essential tremor, and COPD he was a transfer from [facility] secondary to new onset A. fib with RVR are during a COPD exacerbation. She was initially hospitalized at [facility] on 02/22 secondary to acute exacerbation of COPD and possible community-acquired pneumonia. She was treated with Levaquin, DuoNeb's, and steroids. She then developed A. fib with RVR which is new onset. She was started on a Cardizem drip and subsequently transferred to our facility. Of note the patient did have COVID-19 approximately 4 weeks ago but has since recovering and then again had worsening. Patient converted to sinus rhythm overnight. She was taken off of IV Cardizem started on oral Cardizem. She was seen by pulmonary who agreed with continued steroids and bronchodilators. Procalcitonin was 0.08 ruling out bacterial pneumonia. Patient does not wish to be on anticoagulation and she has had multiple falls. Patient seen and examined at bedside. Continues to have improvement in her breathing every day. Still feeling quite fatigued and weak. No chest pain. No nausea or vomiting. General: ill appearing, no distress, appears at stated age Derm: warm, dry Head: atraumatic, normocephalic, symmetric Eyes: EOMI, no lid lag, anicteric sclera Mouth: no lip lesion, mucus membranes moist Cardiovascular: S1S2 reg, no murmur, positive posterior tibial pulse bilateral, Lungs: Wheezing right base , no accessory muscle use Abdominal: soft, nontender to palpation, no guarding, no appreciable organomegaly Ext: no gross muscle atrophy, no edema, no contractures Neuro: CN II-XI grossly intact, no focal neuro deficits Psych: Alert, oriented, appropriate affect Acute exacerbation of COPD, recent COVID-19, acute hypoxic respiratory failure - CXR -Home recommendations appreciated, discontinue Levaquin - steroids, duoneb, pulm hygeine -Bacterial pneumonia ruled out with negative protein calcitonin New-onset A. fib with RVR, currently in normal sinus rhythm -Transitioned off of Cardizem drip to oral Cardizem -tele - echo with preserved ejection fraction - TSH normal - Mg 1.8 - cardio recs - poor candidate for anticoagulation due to slef reporting of multiple falls including one resulting in cervical spine fracture, recommend against oral long- term anticoagulation DM 2 -And Levemir - follow BS - SSI - Hold Glipizide and pioglitozone - [place] Multiple falls -PT/OT consultation MACKENZIE vs CKD - unknown baseline Cr - follow Cr - Avoid nephrotoxic agents - fIV fluids Hypertension, controlled - atenolol -Off home Procardia she has not been started on Cardizem -Follow blood pressures Tobacco abuse -Cessation Obesity with BMI 34 -Structured outpatient weight loss Hypoglycemia resolved DVT prophylaxis: Eiquis Discussed with: patient, nursing Anticipated discharge: [address]: home A total of 35 minutes was spent on the care of this complex patient more than 5 0% of the time was spent in counseling and care coordination. Objective - Vital Signs Vital signs: Vital Signs Temp 96.7 F L 02/26/21 04:00 Pulse 57 L 02/26/21 12:00 Resp 20 02/26/21 12:00 BP 126/68 02/26/21 12:00 Pulse Ox 90 L 02/26/21 12:00 Intake & Output 02/25/21 02/26/21 02/26/21 18:59 06:59 18:59 Intake Total 120 708.292 240 Output Total 300 Balance 120 408.292 240 Weight 94.7 kg 94.7 kg Intake: Intake, IV Titration 708.292 Amount Heparin Sod,Pork in 0.45% 208.292 NaCl 25,000 unit In 0.45 % NaCl 1 250ml.bag @ 10. 471 UNITS/KG/HR 10 mls/hr IV .Q24H [facility] Rx#: [id number] Sodium Chloride 0.9% 1, 500 000 ml @ 50 mls/hr IV . Q20H [facility] Rx#:[id number] Oral 120 240 Output: Urine 300 Other: Voiding Method Toilet Toilet Toilet # Voids 1 1 1 - Labs CBC & Chem 7: 02/26/21 07:31 02/26/21 07:45 Labs: Abnormal Lab Results - Last 24 Hours (Table) 02/25/21 02/25/21 02/26/21 Range/Units 16:48 20:17 05:47 RBC (3.80-5.40) m/uL Hgb (11.4-16.0) gm/dL Hct (34.0-46.0) % Plt Count (150-450) k/uL Lymphocytes # (1.0-4.8) k/uL APTT (22.0-30.0) sec Sodium (137-145) mmol/L BUN (7-17) mg/dL Creatinine (0.52-1.04) mg/dL Glucose (74-99) mg/dL POC Glucose (mg/dL) 334 H 379 H 291 H (75-99) mg/dL Calcium (8.4-10.2) mg/dL 02/26/21 02/26/21 02/26/21 Range/Units 07:31 07:45 07:45 RBC 3.45 L (3.80-5.40) m/uL Hgb 10.6 L (11.4-16.0) gm/dL Hct 31.3 L (34.0-46.0) % Plt Count 138 L (150-450) k/uL Lymphocytes # 0.5 L (1.0-4.8) k/uL APTT 43.0 H (22.0-30.0) sec Sodium 133 L (137-145) mmol/L BUN 28 H (7-17) mg/dL Creatinine 1.44 H (0.52-1.04) mg/dL Glucose 258 H (74-99) mg/dL POC Glucose (mg/dL) (75-99) mg/dL Calcium 8.0 L (8.4-10.2) mg/dL 02/26/21 Range/Units 11:28 RBC (3.80-5.40) m/uL Hgb (11.4-16.0) gm/dL Hct (34.0-46.0) % Plt Count (150-450) k/uL Lymphocytes # (1.0-4.8) k/uL APTT (22.0-30.0) sec Sodium (137-145) mmol/L BUN (7-17) mg/dL Creatinine (0.52-1.04) mg/dL Glucose (74-99) mg/dL POC Glucose (mg/dL) 163 H (75-99) mg/dL Calcium (8.4-10.2) mg/dL
[2021-02-26 16:44] LABS: Glucose,Whole Blood 286 mg/dL (75-99)
[2021-02-26 20:30] LABS: Glucose,Whole Blood 423 mg/dL (75-99)
[2021-02-26 20:30] LABS: Glucose,Whole Blood 426 mg/dL (75-99)
[2021-02-26] MEDS: ATORVASTATIN 10 MG TAB PO SCH (20:42)
[2021-02-26] MEDS ORDERED: INSULIN DETEMIR (LEVEMIR) 100 UNIT/ML SYR SQ SCH (21:00)
[2021-02-26] MEDS: SODIUM CHLORIDE 0.9% 1,000 ML IV SCH (23:31)
[2021-02-27 06:07] LABS: Glucose,Whole Blood 306 mg/dL (75-99)
[2021-02-27] MEDS: INSULIN ASPART (NovoLOG) 100 UNIT/ML VIAL SQ SCH ×2 (06:17→12:35)
[2021-02-27] MEDS: SYMBICORT 160-4.5 MCG INHALER INHALATION SCH (07:32)
[2021-02-27] MEDS: IPRATROPIUM 0.5 MG/2.5 ML NEBU INHALATION SCH ×2 (07:32→12:39)
[2021-02-27 08:33] LABS: HCT 33.3 % (34.0-46.0); HGB 11.2 gm/dL (11.4-16.0); MCH 30.4 pg (25.0-35.0); MCHC 33.7 g/dL (31.0-37.0); Mean Platelet Volume 7.3; Platelet Count 196 k/uL (150-450); RDW 13.6 % (11.5-15.5); WBC 10.5 k/uL (3.8-10.6)
[2021-02-27 08:51] LABS: Calcium 9.2 mg/dL (8.4-10.2); Magnesium 2.1 mg/dL (1.6-2.3)
[2021-02-27 08:56] VITALS: TEMP 97.7
[2021-02-27] MEDS: DILTIAZEM ORAL 60 MG TAB PO SCH (09:11)
[2021-02-27] MEDS: APIXABAN 5 MG TAB PO SCH (09:11)
[2021-02-27] MEDS: atenoloL 25 MG TAB PO SCH (09:11)
[2021-02-27] MEDS: CHOLECALCIFEROL 25 MCG (1000 IU) TABLET PO SCH (09:11)
[2021-02-27] MEDS: CYANOCOBALAMIN 500 MCG TAB PO SCH (09:12)
[2021-02-27] MEDS: methylPREDNISolone SOD SUCCI 40 MG/ML 1 ML VIAL IV SCH (09:12)
[2021-02-27] MEDS: ZINC SULFATE 220 MG CAP PO SCH (09:12)
[2021-02-27] MEDS: LINAGLIPTIN 5 MG TABLET PO SCH (09:12)
[2021-02-27] MEDS: hydroCHLOROthiazide 12.5 MG CAP PO SCH (09:13)
[2021-02-27] MEDS: PARoxetine 10 MG TAB PO SCH (09:13)
[2021-02-27] MEDS: ASCORBIC ACID 500 MG TAB PO SCH (09:15)
[2021-02-27] MEDS: FUROSEMIDE 10 MG/ML 4 ML VIAL IV SCH (09:15)
[2021-02-27 11:49] LABS: Glucose,Whole Blood 357 mg/dL (75-99)
[2021-02-27] MEDS ORDERED: INSULIN ASPART (NovoLOG) 100 UNIT/ML VIAL SQ SCH (12:30)
[2021-02-27 12:31] VITALS: BP 135/78
[2021-02-27 12:42] VITALS: RESP 16
--- NOTE | 2021-02-27 12:44 | P.PN ---
Subjective Progress Note Date: 02/27/21 75-year-old female, with a history of diabetes, hyperlipidemia, essential tremor, and COPD. She apparently was transferred down from [facility], with new onset atrial fibrillation and RVR. She apparently had COVID 19 infection roughly 4 weeks ago, and was admitted to [facility] on February 09, and discharged home. Apparently since that time, her breathing has worsened. She was readmitted to [facility] on February 22, at which time she was suspected to have community-acquired pneumonia along with COPD exacerbation. She was started on Levaquin, DuoNeb, and Solu-Medrol. Apparently, the patient was making improvement at which time, she was noted to have atrial fibrillation with RVR. She was transferred down primarily for cardiology evaluation. She's currently resting comfortably. She's currently on 4 L nasal oxygen. She's getting saline at 75 mL an hour, which returned on the KVO, and IV heparin. She is not admitting to any shortness of breath at this time. She mostly focuses on her irregular heartbeat. Laboratory data includes a white count 7.5, hemoglobin 11.3, hematocrit 34.7, and platelet count 157,000. PTT is 60. Sodium 135, potassium 3.6, chlorides 104, CO2 25, anion gap 6, BUN and creatinine were 22 and 1.69. There is some basilar atelectasis. No definitive infiltrate. The interstitium to me as a bit prominent which might be consistent with some mild interstitial edema/CHF. On today's evaluation of 12/29/2020, patient is being seen for a follow-up. She is feeling better compared to yesterday. Less short of breath. Slightly bro nchospastic and wheezing on today's evaluation. IV fluids are to KVO .. The patient is converted to normal sinus rhythm. The echocardiogram showed a normal LV function, moderate concentric LVH, ejection fraction of 50-60% and there was some diastolic filling pattern. No significant valvular abnormalities noted. The patient is currently on Cardizem drip 60 mg by mouth 3 times a day and O 25 mg by mouth twice a day and adequate 5 mg by mouth twice a day. The patient is also on Symbicort on a 60/4.52 puffs twice a day and the patient is on Levemir insulin for blood sugar control 15 units daily at bedtime along with vascular coverage. On 12/30/2020, the patient is being seen for a follow-up. The patient is sitting much better compared to yesterday. She is less short of breath and less bronchospastic and wheezy. Noted the patient was given a combination of bronchodilators and steroids. The patient was also given diuretics with Lasix 40 mg IV push every 24 hours pH has been a negative fluid balance. Cardiac rhythm is sinus. No chest pain. No shortness of breath. No palpitation. She has chronic tremors patient is able to sit up on a chair. She remains on insulin Levemir 22 units at bedtime along with a NovoLog 3 units with meals and a sliding scale coverage. The creatinine today is 1.7 and the patient has a white cell count of 10.4 with a hemoglobin of 11.2. No other significant events otherwise for now. No altered mentation. She remains on anticoagulation with Eliquis 5 mg by mouth twice a day. Objective - Vital Signs Vital signs: Vital Signs Temp 97.7 F 02/27/21 08:00 Pulse 63 02/27/21 08:00 Resp 18 02/27/21 08:00 BP 132/77 02/27/21 08:00 Pulse Ox 95 02/27/21 08:00 Intake & Output 02/26/21 02/27/21 02/27/21 18:59 06:59 18:59 Intake Total 720 240 Output Total 1700 Balance 720 -1700 240 Weight 94.7 kg 94.1 kg Intake: Oral 720 240 Output: Urine 1700 Other: Voiding Method Toilet Toilet Toilet # Voids 1 - Exam No acute distress, oriented 3. Currently on 3 L. No conversational dyspnea or use of accessory muscles. Head exam was generally normal. There was no scleral icterus or corneal arcus. Mucous membranes were moist. HEENT examination is grossly unremarkable. Neck supple. Full range of motion. No adenopathy thyromegaly or neck vein distention. Cardiovascular examination reveals an irregular rhythm and rate. S1-S2 normal. No S3 or S4. No discernible murmur noted. The cardiac rhythm is sinus. Lungs reveal mild scattered rhonchi and basilar crackles. No wheezes. Breath sounds equal bilaterally. Abdomen soft bowel sounds are heard. No masses or tenderness. Extremities are intact. Trace edema. No cyanosis or clubbing. Skin is without rash or lesion. Neurologic examination is brief but nonfocal. - Labs CBC & Chem 7: 02/27/21 08:16 02/27/21 08:16 Labs: Abnormal Lab Results - Last 24 Hours (Table) 02/26/21 02/26/21 02/26/21 Range/Units 16:42 20:13 20:14 RBC (3.80-5.40) m/uL Hgb (11.4-16.0) gm/dL Hct (34.0-46.0) % Sodium (137-145) mmol/L BUN (7-17) mg/dL Creatinine (0.52-1.04) mg/dL Glucose (74-99) mg/dL POC Glucose (mg/dL) 286 H 423 H 426 H (75-99) mg/dL 02/27/21 02/27/21 02/27/21 Range/Units 06:03 08:16 08:16 RBC 3.70 L (3.80-5.40) m/uL Hgb 11.2 L (11.4-16.0) gm/dL Hct 33.3 L (34.0-46.0) % Sodium 134 L (137-145) mmol/L BUN 38 H (7-17) mg/dL Creatinine 1.74 H (0.52-1.04) mg/dL Glucose 312 H (74-99) mg/dL POC Glucose (mg/dL) 306 H (75-99) mg/dL 02/27/21 Range/Units 11:47 RBC (3.80-5.40) m/uL Hgb (11.4-16.0) gm/dL Hct (34.0-46.0) % Sodium (137-145) mmol/L BUN (7-17) mg/dL Creatinine (0.52-1.04) mg/dL Glucose (74-99) mg/dL POC Glucose (mg/dL) 357 H (75-99) mg/dL Assessment and Plan Plan: 1 Shortness of breath, likely multifactorial, in part related to atrial fibrillation/RVR, possible COPD exacerbation, and possible underlying mild fluid overload/CHF. The patient is clinically improving. Echocardiogram showing a diastolic heart failure with a preserved LV function. The patient for now is in a normal sinus rhythm. The patient's been diuresed. The patient was also given steroids for a component of COPD exacerbation. 2 History of underlying COPD. 3 History of diabetes mellitus. 4 History of hypertension. 5 Prior history of COVID 19 infection, roughly 1 month ago. 6 History of ongoing tobacco use. 7 History of benign essential tremor. Plan: Continue daily Lasix 40 mg IV every 24 hours Stop IV Solu-Medrol and switch this patient a prednisone burst taper starting with 40 mg Wean down the FiO2 as tolerated to maintain a saturation above 90% The cardiac rhythm is back to sinus Continue oral cardizem Long-term and to coagulation with Eliquis We'll continue to follow
[2021-02-27 12:51] VITALS: PULSE 68
--- NOTE | 2021-02-27 13:37 | P.PN ---
Subjective This is a 75-year-old female with history of type 2 diabetes, hypertension and COPD who apparently was diagnosed for 4 weeks ago with coronavirus infection. Patient was treated and was sent home but readmitted to the [facility] on February 22 with suspected community acquired pneumonia and COPD exacerbation. Patient was being treated with antibiotics and steroids. Patient apparently developed atrial fibrillation with RVR. She was transferred to this hospital for further evaluation and treatment. Current home cardiac medications include glipizide 12.5 mg daily, atenolol 0.5 mg twice a day, nifedipine 90 mg daily, lovastatin 20 mg nightly 02/26/21:Echocardiogram revealed EF 55-60%, RV is mildly enlarged, LA is mildly dilated, mild mitral regurgitation, mild tricuspid regurgitation 02/27/21: Patient seen and examined at bedside, no acute distress, sitting up at edge of the bed. Feels well. Denies chest pain, palpitations, lightheadedness, dizziness or chest discomfort. Laboratory data reviewed sodium 133, potassium 3.8, serum creatinine 1.74 (improved 1.44 yesterday), BUN 38. Telemetry reviewed patient currently in sinus mechanism heart rate 60s. Patient does state that she used to have frequent falls. She has not follow in the past 6 months. When she did fall 6 months ago he was to to weakness in her legs or tripping. Currently being maintained on atenolol 25 mg twice a day, atorvastatin 10 mg nightly, Eliquis 5mg BID drip, furosemide 40 mg IV daily, hydrochlorothiazide 12.5 mg daily, Diltizem 60mg TID GENERAL: Well-appearing, well-nourished and in no acute distress. Blood pressure 135/78, heart rate 64, maintaining oxygen saturation is 93% on 3 L nasal cannula NECK: Supple without JVD or thyromegaly. LUNGS: Breath sounds clear to auscultation bilaterally. Respiration equal and unlabored. No wheezes, rales or rhonchi. HEART: Regular rate and rhythm without murmurs, rubs or gallops. S1 and S2 heard. EXTREMITIES: Normal range of motion, no edema. No clubbing or cyanosis. Peripheral pulses intact. ASSESSMENT: -Paroxysmal atrial fibrillation with RVR [id number] score 5 -Hypertension -Type 2 Diabetes -COPD -Recent COVID-19 infection 4 weeks ago PLAN: -Continue Eliquis 5mg BID -Continue atenolol 25mg BID and Diltizem 60mg TID for rate control -ACEI/ARB is on hold due to renal function -Continue hydrochlorthiazide 12.5mg daily -From cardiology perspective patient is stable for discharge home. -FOllow up with Dr. Mckeon outpatient within 1-2 weeks Objective - Vital Signs Vital signs: Vital Signs Temp 97.7 F 02/27/21 08:00 Pulse 68 02/27/21 12:51 Resp 16 02/27/21 12:51 BP 135/78 02/27/21 12:00 Pulse Ox 93 L 02/27/21 12:00 Intake & Output 02/26/21 02/27/21 02/27/21 18:59 06:59 18:59 Intake Total 720 480 Output Total 1700 400 Balance 720 -1700 80 Weight 94.7 kg 94.1 kg Intake: Oral 720 480 Output: Urine 1700 400 Other: Voiding Method Toilet Toilet Toilet # Voids 1 - Labs CBC & Chem 7: 02/27/21 08:16 02/27/21 08:16 Labs: Abnormal Lab Results - Last 24 Hours (Table) 02/26/21 02/26/21 02/26/21 Range/Units 16:42 20:13 20:14 RBC (3.80-5.40) m/uL Hgb (11.4-16.0) gm/dL Hct (34.0-46.0) % Sodium (137-145) mmol/L BUN (7-17) mg/dL Creatinine (0.52-1.04) mg/dL Glucose (74-99) mg/dL POC Glucose (mg/dL) 286 H 423 H 426 H (75-99) mg/dL 02/27/21 02/27/21 02/27/21 Range/Units 06:03 08:16 08:16 RBC 3.70 L (3.80-5.40) m/uL Hgb 11.2 L (11.4-16.0) gm/dL Hct 33.3 L (34.0-46.0) % Sodium 134 L (137-145) mmol/L BUN 38 H (7-17) mg/dL Creatinine 1.74 H (0.52-1.04) mg/dL Glucose 312 H (74-99) mg/dL POC Glucose (mg/dL) 306 H (75-99) mg/dL 02/27/21 Range/Units 11:47 RBC (3.80-5.40) m/uL Hgb (11.4-16.0) gm/dL Hct (34.0-46.0) % Sodium (137-145) mmol/L BUN (7-17) mg/dL Creatinine (0.52-1.04) mg/dL Glucose (74-99) mg/dL POC Glucose (mg/dL) 357 H (75-99) mg/dL
--- NOTE | 2021-02-27 13:47 | P.DS ---
Providers Date of admission: 02/24/21 23:57 Expected date of discharge: 02/27/21 Attending physician: Jody Parisi MD Consults: 02/25/21 01:08 Consult Physician Routine Consulting Provider: Mark Méndez Consult Reason/Comments: COPD, COVID Do you want consulting provider notified?: Yes Consult Physician Routine Consulting Provider: Saúl Radford Consult Reason/Comments: afib, rvr Do you want consulting provider notified?: Yes Primary care physician: Stated None Hospital Course: Discharge Diagnosis: Acute exacerbation of COPD with acute hypoxic respiratory failure, recent COVID- 19 New-onset A. fib with rapid ventricular response, paroxysmal Diabetes mellitus type 2 with hyperglycemia secondary to IV steroids Multiple falls Chronic kidney disease Hypertension Tobacco abuse Morbid obesity with BMI 34 Hospital Course: Patient is a 75-year-old female with diabetes mellitus type 2, hypertension, essential tremor, and COPD he was a transfer from [facility] secondary to new onset A. fib with RVR are during a COPD exacerbation. She was initially hospitalized at [place] on 02/22 secondary to acute exacerbation of COPD and possible community-acquired pneumonia. She was treated with Levaquin, DuoNeb's, and steroids. She then developed A. fib with RVR which is new onset. She was started on a Cardizem drip and subsequently transferred to our facility. Of note the patient did have COVID-19 approximately 4 weeks ago but has since recovering and then again had worsening. Patient converted to sinus rhythm overnight. She was taken off of IV Cardizem started on oral Cardizem. She was seen by pulmonary who agreed with continued steroids and bronchodilators. Procalcitonin was 0.08 ruling out bacterial pneumonia. Patient does not wish to be on anticoagulation and she has had multiple falls. She continued to do well and her breathing improved. She is determined stable for discharge. Follow-up: Patient will have home health with telehealth, she will follow up with Dr. Fletcher her tax services professional in 1-2 weeks, Dr. Mckeon in 2 week, and Caden Sethi NP on 03/01, she'll follow her blood sugars closely at home. She will consider starting Eliquis once her balance has improved, nifidipine was stopped and she was transitioned to cardizem. Patient seen and examined at bedside. Feeling much better. Breathing is much better. No chest discomfort. Still feeling weak but better. We had a darrel discussion regarding benefits and risks of anticoagulation with A. kavon including decreasing the risk of stroke per year, but high risk of bleeding. Patient has had multiple falls including one resulting in a neck fracture. At this point in time she will hold off on starting Eliquis until we can have her balance and gait improved and this will be done through home physical therapy. Vital signs reviewed and stable. General: non toxic, no distress, appears at stated age Derm: warm, dry Head: atraumatic, normocephalic, symmetric Eyes: EOMI, no lid lag, anicteric sclera Mouth: no lip lesion, mucus membranes moist Cardiovascular: S1S2 reg, no murmur, positive posterior tibial pulse bilateral, Lungs: Coarse breath sounds bilateral, no rhonchi, no rales , no accessory muscle use Abdominal: soft, nontender to palpation, no guarding, no appreciable organom egaly Ext: no gross muscle atrophy, no edema, no contractures Neuro: CN II-XI grossly intact, no focal neuro deficits Psych: Alert, oriented, appropriate affect A total of 45 minutes of time were spent preparing this complex discharge summary . Plan - Discharge Summary New Discharge Prescriptions: New Apixaban [Eliquis] 5 mg PO BID 30 Days #60 tab predniSONE [Deltasone] 60 mg PO DAILY #24 tab Diltiazem Oral [Cardizem*] 60 mg PO TID 30 Days #93 tab Continue hydroCHLOROthiazide 12.5 mg PO DAILY glipiZIDE [Glucotrol] 10 mg PO BID Levalbuterol Nebulized [Xopenex Nebulized] 1.25 mg INHALATION RT-Q4H PRN PRN Reason: Shortness Of Breath Budesonide/Formoterol Fumarate [Symbicort 160-4.5 Mcg Inhaler] 2 puff INHALATION RT-BID PARoxetine HCL [Paxil] 30 mg PO DAILY Lovastatin [Mevacor] 20 mg PO HS sitaGLIPtin [Januvia] 50 mg PO DAILY Cholecalciferol (Vitamin D3) [Vitamin D3 (5000 Iu)] 125 mcg PO DAILY Pioglitazone [Actos] 15 mg PO DAILY Zafirlukast [Accolate] 20 mg PO BID Cyanocobalamin (Vitamin B-12) [Vitamin B-12] 1,000 mcg PO DAILY Budesonide 1 mg INHALATION RT-BID atenoloL [Atenolol] 25 mg PO BID Discontinued NIFEdipine XL [Procardia Xl] 30 mg PO DAILY predniSONE See Taper PO DAILY NIFEdipine [Procardia XL] 90 mg PO DAILY Discharge Medication List Budesonide 1 mg INHALATION RT-BID 02/25/21 [History] Budesonide/Formoterol Fumarate [Symbicort 160-4.5 Mcg Inhaler] 2 puff INHALATION RT-BID 02/25/21 [History] Cholecalciferol (Vitamin D3) [Vitamin D3 (5000 Iu)] 125 mcg PO DAILY 02/25/21 [History] Cyanocobalamin (Vitamin B-12) [Vitamin B-12] 1,000 mcg PO DAILY 02/25/21 [History] Levalbuterol Nebulized [Xopenex Nebulized] 1.25 mg INHALATION RT-Q4H PRN 02/25/21 [History] Lovastatin [Mevacor] 20 mg PO HS 02/25/21 [History] PARoxetine HCL [Paxil] 30 mg PO DAILY 02/25/21 [History] Pioglitazone [Actos] 15 mg PO DAILY 02/25/21 [History] Zafirlukast [Accolate] 20 mg PO BID 02/25/21 [History] atenoloL [Atenolol] 25 mg PO BID 02/25/21 [History] glipiZIDE [Glucotrol] 10 mg PO BID 02/25/21 [History] hydroCHLOROthiazide 12.5 mg PO DAILY 02/25/21 [History] sitaGLIPtin [Januvia] 50 mg PO DAILY 02/25/21 [History] Apixaban [Eliquis] 5 mg PO BID 30 Days #60 tab 02/26/21 [Rx] Diltiazem Oral [Cardizem*] 60 mg PO TID 30 Days #93 tab 02/27/21 [Rx] predniSONE [Deltasone] 60 mg PO DAILY #24 tab 02/27/21 [Rx] Follow up Appointment(s)/Referral(s): [facility]01[facility]21 9:30 am (tele health appointment later this week ) [facility] [NON-STAFF] - Beverley Mckeon MD [STAFF PHYSICIAN] - 2 Weeks (office will call you with an appt.) Mando Fletcher MD [STAFF PHYSICIAN] - 03/06/21 11:30 am (phone visit office will call.) Patient Instructions/Handouts: A-fib (Atrial Fibrillation) (DC) Activity/Diet/Wound Care/Special Instructions: Activity: as tolerated Diet: carb consistent, heart healthy Special Instructions: Eliquis is your blood thinner Take blood sugar once daily at home and make a log for Flavio Sethi Discharge Disposition: HOME SELF-CARE
[2021-02-27] MEDS ORDERED: INSULIN DETEMIR (LEVEMIR) 100 UNIT/ML SYR SQ SCH (21:00)
[2021-02-28] MEDS ORDERED: predniSONE 20 MG TAB PO SCH (09:00)
== END 2021-02-27 15:01 | disposition home or self-care (01) | DRG 308 ==
LOC: 3SCARD 23:57
PROVIDERS: ADMIT Internal Medicine; ATTEND Internal Medicine
DX: I48.0 Paroxysmal atrial fibrillation (principal); J18.9 Pneumonia, unspecified organism; J96.01 Acute respiratory failure with hypoxia; J44.0 Chronic obstructive pulmonary disease with (acute) lower respiratory infection; J44.1 Chronic obstructive pulmonary disease with (acute) exacerbation; J98.11 Atelectasis; I13.0 Hypertensive heart and chronic kidney disease with heart failure and stage 1 through stage 4 chronic kidney disease, or unspecified chronic kidney disease; I50.30 Unspecified diastolic (congestive) heart failure; E11.22 Type 2 diabetes mellitus with diabetic chronic kidney disease; E11.649 Type 2 diabetes mellitus with hypoglycemia without coma; E11.65 Type 2 diabetes mellitus with hyperglycemia; E66.01 Morbid (severe) obesity due to excess calories; E78.5 Hyperlipidemia, unspecified; Z71.6 Tobacco abuse counseling; F17.210 Nicotine dependence, cigarettes, uncomplicated; G25.0 Essential tremor; Z66 Do not resuscitate; Z86.16 Personal history of COVID-19; T38.0X5A Adverse effect of glucocorticoids and synthetic analogues, initial encounter; N18.9 Chronic kidney disease, unspecified; R29.6 Repeated falls; Z91.81 History of falling; Z87.81 Personal history of (healed) traumatic fracture; Z68.34 Body mass index [BMI] 34.0-34.9, adult; Z79.01 Long term (current) use of anticoagulants; Z79.51 Long term (current) use of inhaled steroids; Z79.84 Long term (current) use of oral hypoglycemic drugs; Z79.899 Other long term (current) drug therapy; Z90.710 Acquired absence of both cervix and uterus; Z96.60 Presence of unspecified orthopedic joint implant; Z87.01 Personal history of pneumonia (recurrent); Z88.1 Allergy status to other antibiotic agents; Z88.8 Allergy status to other drugs, medicaments and biological substances; Z98.890 Other specified postprocedural states
CPT/HCPCS: 71046; 80048; 80053; 83036; 83735; 83880; 84100; 84145; 84443; 85025; 85027; 85610; 85730; 93306; 94640; 94760